=== PATIENT | male | born 1970 | race Two or more races ===

== ENCOUNTER 2019-07-05 16:56 | Emergency (ER) | payer SELFPAY ==
[~2019-07-05] VITALS: Ht 160 cm; Wt 68.0 kg
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
--- NOTE | 2019-07-05 17:15 | NUR ---
ED Nurse Note: IV ESTABLISHED ON THE LEFT HAND WITH 20G. LINE INTACT AND PATENT
[2019-07-05 17:38] VITALS: BP 135/79
--- NOTE | 2019-07-05 18:30 | NUR ---
ER DISCHARGE NOTE: Patient is cleared to be discharged per ERMD, pt is aox4, on room air, with stable vital signs. pt was given dc instructions, pt was able to verbalize understanding, pt id band and iv site removed without complications. pt is able to ambulate with steady gait. pt took all belongings.
[2019-07-05 18:36] VITALS: BP 135/79
== END 2019-07-05 18:36 | disposition home or self-care (01) ==
LOC: EDBD 16:56 → EMR 18:03
DX: F10.129 Alcohol abuse with intoxication, unspecified (principal); Y90.9 Presence of alcohol in blood, level not specified
CPT/HCPCS: 96360; 99284